=== PATIENT | female | born 1980 | race Two or more races ===

== ENCOUNTER 2024-08-01 18:39 | Emergency (ER) | payer OTHER ==
[~2024-08-01] VITALS: Ht 157.5 cm; Wt 64.4 kg
[2024-08-01] MEDS ORDERED: TOPROL XL25 M1 (19:09)
[2024-08-01] MEDS ORDERED: 0.9 % SODIUM CHLORIDE 1,000 ML IV STA (20:43)
[2024-08-01] MEDS ORDERED: FAMOTIDINE/PF 20 MG/2 ML VIAL IV ONE (20:45)
[2024-08-01] MEDS ORDERED: DICYCLOMINE HCL 20 MG TABLET PO ONE (20:45)
[2024-08-01] MEDS ORDERED: MORPHINE SULFATE 2 MG/ML SYRINGE IV ONE (20:45)
[2024-08-01 21:14] LABS: HEMATOCRIT 38.3 % (36.0-45.00); HEMOGLOBIN 13.1 g/dL (12.0-15.00); MEAN CELL VOLUME 80.2 fL (80.00-100.00); MEAN CORPUSCULAR HEMOGLOBIN 27.4 pg (27.00-32.0); MEAN CORPUSCULAR HGB CONC 34.2 g/dl (32.0-36.0); PLATELET COUNT 310 K/uL (150-450); RED BLOOD COUNT 4.78 M/uL (4.00-6.00); RED CELL DISTRIBUTION WIDTH 13.5 % (11.5-14.5)
[2024-08-01] MEDS ORDERED: ONDANSETRON HCL 2 MG/ML VIAL IV ONE (21:30)
[2024-08-01 21:42] LABS: INR 1.06; PARTIAL THROMBOPLASTIN TIME 28.7 SECONDS (22.0-34.0); PROTHROMBIN TIME 11.5 SECONDS (9.0-11.5)
[2024-08-01 21:53] LABS: ALBUMIN 3.5 gm/dL (3.4-5.0); BILIRUBIN TOTAL 0.27 mg/dL (0.3-1.2); CALCIUM 8.6 mg/dL (8.5-10.1); CREATININE SERUM 0.63 mg/dL (0.55-1.02); GFR 102.66; GLOBULINA 4.4 G/DL (2.4-3.5); TOTAL PROTEIN 7.9 gm/dL (6.4-8.2)
[2024-08-01 22:13] LABS: POTASSIUM 2.7 mEq/L (3.5-5.1)
[2024-08-01] MEDS ORDERED: POTASSIUM CHLORIDE 10 MEQ CAPSULE PO ONE (23:00)
[2024-08-02] MEDS ORDERED: KETOROLAC TROMETHAMINE 30 MG VIAL IV STA (01:26)
[2024-08-02] MEDS ORDERED: HYOSCYAMINE SULFATE 0.125 MG TAB.SUBL SL STA (01:26)
[2024-08-02] MEDS ORDERED: CIPROFLOXACIN IN 5 % DEXTROSE 400 MG/200 ML PIGGYBAG IV STA (02:07)
[2024-08-02] MEDS ORDERED: METRONIDAZOLE/SODIUM CHLORIDE 500 MG/100 ML PIGGYBACK IV STA (02:08)
== END 2024-08-02 02:01 | disposition home or self-care (01) ==
LOC: ER 18:41
PROVIDERS: Emergency Medicine
DX: K52.89 Other specified noninfective gastroenteritis and colitis (principal); Z88.0 Allergy status to penicillin; Z20.822 Contact with and (suspected) exposure to COVID-19